=== PATIENT | female | born 1975 | race Caucasian/White ===

== ENCOUNTER 2017-02-09 16:03 | Emergency (ER) | payer MEDICAID, OTHER ==
[~2017-02-09] VITALS: Ht 175.3 cm; Wt 120.0 kg
[~2017-02-09 16:03] MED LIST: IBUP800T25 PO
[2017-02-09 16:07] VITALS: Ht 175.3 cm; Wt 120.0 kg
[2017-02-09] MEDS ORDERED: IPRATROPIUM (NEB) 0.5 MG/2.5 ML AMP HHN ONE (17:30)
[2017-02-09] MEDS ORDERED: ALBUTEROL 0.083% (NEB) 2.5 MG/3 ML AMP HHN STA (17:30)
[2017-02-09] MEDS ORDERED: DEXAMETHASONE 10 MG/ML 1 ML INJ PO ONE (17:30)
--- NOTE | 2017-02-09 18:58 | RADRPT ---
PROCEDURE: XR Chest. CLINICAL INDICATION: Cough. TECHNIQUE: Single frontal view of the chest. COMPARISON: None. FINDINGS: The cardiomediastinal silhouette is within normal limits. The patient body habitus and portable tech nique accentuate pulmonary vascular markings at lung bases. Mild bibasilar vascular crowding. The robinson ngs are clear. No signs of pleural fluid or pneumothorax are seen. The osseous structures and soft t issues are unremarkable. IMPRESSION: No evidence for active cardiopulmonary disease. RPTAT: [facility] Physician Sherrie Date Time Electronically viewed and signed by Lexus De La Rosa Physician on 02/09/2017 18:58 RS/
[2017-02-09] MEDS ORDERED: ALBU8.5H3 INH (19:04)
[2017-02-09] MEDS ORDERED: MED4DP PO (19:04)
--- NOTE | 2017-02-09 19:10 | ERD ---
ER Documentation Chief Complaint Date/Time DATE: 02/09/17 TIME: 19:07 Chief Complaint Pt wheezing X 3 days and HERNANDEZ. HPI This is a 41-year-old female presents to the ER with wheezing for the last 3 days. Patient is also complaining of sore throat and a lot of chest congestion. Patient had a cough 2 weeks ago and states that cough has not resolved. Patient denies any chest pain. She denies any fevers or chills. Patient denies any difficulty in swallowing. There are no sick contacts at home. ROS 12 point review of systems was done, all negative except per HPI. Medications Home Meds Active Scripts Albuterol Sulfate* (Proair HFA*) 8.5 Gm Hfa.aer.ad, 2 PUFF INH Q4, #1 INHALER Prov:ROLYMONICA Solitario 02/09/17 Methylprednisolone* (Medrol* DOSE PACK) 4 Mg/Dose-Pack Tab.ds.pk, 4 MG PO . DIRECTED for 6 Days, PACKET Prov:ROLYMONICA Solitario 02/09/17 Reported Medications Ibuprofen* (Ibuprofen*) 800 Mg Tablet, 800 MG PO Q8, TAB 09/07/15 Allergies Allergies: Coded Allergies: No Known Drug Allergies (Verified Allergy, Unknown, 09/07/15) PMhx/Soc History of Surgery: No Anesthesia Reaction: No Hx Neurological Disorder: No Hx Respiratory Disorders: Yes (ON AND OFF COLD FOR TWO WEEKS) Hx Cardiac Disorders: Yes (HTN) Hx Psychiatric Problems: No Hx Miscellaneous Medical Probl: No Hx Alcohol Use: Yes (OCCASIONAL) Hx Substance Use: No Hx Tobacco Use: Yes (occas) Smoking Status: Current some day smoker Physical Exam Vitals Vital Signs Date Time Temp Pulse Resp B/P Pulse Ox O2 Delivery O2 Flow Rate FiO2 02/09/17 17:49 82 14 98 21 02/09/17 16:07 98.8 82 14 151/72 98 Physical Exam GENERAL: The patient is well-developed, well-nourished, in no acute distress. NECK: Cervical spine is non tender with no step off. Supple, no nuchal rigidity HEENT: Atraumatic. Pupils equal, round and reactive to light. Extraocular muscles are grossly intact. Conjunctivae pink, no discharge. Bilateral tympanic membranes are clear with no evidence of erythema, effusion or dulling of the light reflex. Tonsilar erythema with no exudates or uvular deviation. Clear rhinorrhea. RESPIRATORY: Expiratory wheezing in all lung egan. No rales rhonchi or crackles. HEART: Regular rate and rhythm. No murmurs, clicks, rubs or gallops. EXTREMITIES: No clubbing or cyanosis. Full range of motion. Grossly neurovascularly intact. NEUROLOGIC: Alert and oriented. Cranial nerves II through XII are intact. SKIN: There is no rash. The skin is warm and dry. Results 24 hrs Current Medications Medications (Trade) Dose Ordered Sig/Lauri Route PRN Reason Start Time Stop Time Status Last Admin Dose Admin Albuterol (Proventil 0.083% (Neb)) 5 mg ONCE STAT HHN 02/09/17 17:30 02/09/17 17:33 DC 02/09/17 17:47 Ipratropium Ehrenberg (Atrovent 0.02% (Neb)) 0.5 mg ONCE ONCE HHN 02/09/17 17:30 02/09/17 17:33 DC 02/09/17 17:47 Dexamethasone (Decadron) 10 mg ONCE ONCE PO 02/09/17 17:30 02/09/17 17:33 DC 02/09/17 17:51 [place] [id number] Radiology Main Line: [phone] DIAGNOSTIC IMAGING REPORT Patient: ANASTASIA SMITH : 1975 Age: 41 Sex: F MR #: [id number] DOS: 02/09/17 0000 Ordering MD: MONICA DUNHAM PA-C Location: [facility] Room/Bed: PROCEDURE: XR Chest. CLINICAL INDICATION: Cough. TECHNIQUE: Single frontal view of the chest. COMPARISON: None. FINDINGS: The cardiomediastinal silhouette is within normal limits. The patient body habitus and portable technique accentuate pulmonary vascular markings at lung bases. Mild bibasilar vascular crowding. The lungs are clear. No signs of pleural fluid or pneumothorax are seen. The osseous structures and soft tissues are unremarkable. IMPRESSION: No evidence for active cardiopulmonary disease. RPTAT: [facility] Physician Sherrie Date Time Electronically viewed and signed by Lexus De La Rosa Physician on 02/09/2017 18:58 RS/ CC: MONICA DUNHAM Procedures/MDM Differential diagnosis includes but is not limited to; Viral URI, allergic rhinitis, bronchitis, pertussis,pneumonia. This is likely viral in etiology. Clinical suspicion for pneumonia is low as patient appears well, is not hypoxic or in any respiratory distress. Additionally, patients physical examination is benign. Plan was discussed with patient they understand and agree. Patient needs to follow up with PCP in 1-2 days or return to ER sooner if symptoms worsen. Departure Diagnosis: Primary Impression: Wheezing Condition: Stable Patient Instructions: Bronchitis With Wheezing (Adult) Referrals: IRA LUDWIG (PCP) Additional Instructions: Call your primary care doctor TOMORROW for an appointment during the next 1-2 days.See the doctor sooner or return here if your condition worsens before your appointment time. MONICA DUNHAM Feb 09, 2017 19:10
[2017-02-09 19:41] VITALS: BP 142/84; PULSE 59; RESP 18; TEMP 98.9
== END 2017-02-09 19:42 | disposition home or self-care (01) ==
LOC: FTE 16:03
DX: R06.2 Wheezing (principal); I10 Essential (primary) hypertension; F17.210 Nicotine dependence, cigarettes, uncomplicated
CPT/HCPCS: 71010; 94664; J1100; Z7502; Z7610

== ENCOUNTER 2018-01-06 18:03 | Emergency (ER) | END 2018-01-06 21:20 | disposition home or self-care (01) ==